=== PATIENT | female | born 2000 | race African-American/Black ===

== ENCOUNTER 2021-09-20 21:26 | Inpatient (IN) | payer OTHER ==
[~2021-09-20] VITALS: Ht 162.6 cm; Wt 56.8 kg
[2021-09-20 22:37] LABS: HEMATOCRIT 35.8 % (36.0-47.0); MEAN CORPUSCULAR HEMOGLOBIN 29.1 pg (27.0-33.0); MEAN CORPUSCULAR HGB CONC 33.5 g/dl (32.0-36.5); MEAN CORPUSCULAR VOLUME 86.9 fl (80.0-96.0); PLATELET COUNT, AUTOMATED 252 10^3/uL (150-450); RED BLOOD COUNT 4.12 10^6/uL (4.00-5.40); WHITE BLOOD COUNT 4.3 10^3/uL (4.0-10.0)
[2021-09-20 22:55] LABS: HCG, SERUM QUALITATIVE NEGATIVE (NEGATIVE)
[2021-09-20 23:01] LABS: ACETAMINOPHEN LEVEL < 2.0 UG/ML (10.0-30.0); ALT/SGPT 21 U/L (12-78); BILIRUBIN,DIRECT < 0.1 MG/DL (0.0-0.2); BILIRUBIN,TOTAL 0.2 MG/DL (0.2-1.0); BLOOD UREA NITROGEN 9 MG/DL (7-18); CALCIUM LEVEL 9.1 MG/DL (8.5-10.1); CARBON DIOXIDE LEVEL 27 MEQ/L (21-32); CHLORIDE LEVEL 108 MEQ/L (98-107); CREATININE FOR GFR 0.76 MG/DL (0.55-1.30); ETHYL ALCOHOL (ETHANOL) < 0.003 % (0.000-0.010); GLUCOSE, FASTING 79 MG/DL (70-100); POTASSIUM SERUM 3.6 MEQ/L (3.5-5.1); SALICYLATE LEVEL < 1.7 MG/DL (5.0-30.0); SODIUM LEVEL 140 MEQ/L (136-145); TOTAL PROTEIN 7.4 GM/DL (6.4-8.2)
[2021-09-20 23:23] LABS: AMPHETAMINES LEVEL URINE NEGATIVE (NEGATIVE); BARBITURATES URINE NEGATIVE (NEGATIVE); BENZODIAZEPINES URINE NEGATIVE (NEGATIVE); CANNABINOIDS URINE POSITIVE (NEGATIVE); COCAINE METABOLITE URINE NEGATIVE (NEGATIVE); METHADONE URINE NEGATIVE (NEGATIVE); OPIATES URINE NEGATIVE (NEGATIVE); PHENCYCLIDINE URINE NEGATIVE (NEGATIVE)
[2021-09-20 23:44] LABS: RSV AMPLIFICATION NEGATIVE (NEGATIVE)
[2021-09-21] MEDS ORDERED: MOM 30ML SUSPENSION UDC PO PRN (00:50)
[2021-09-21] MEDS ORDERED: ACETAMINOPHEN TAB 650MG DOSE (2X325MG) PO PRN (00:50)
[2021-09-21] MEDS ORDERED: LORazepam 0.5 MG TAB PO PRN (00:50)
[2021-09-21] MEDS ORDERED: traZODone 50 MG TAB PO PRN (00:50)
[2021-09-21] MEDS ORDERED: MAALOX 30 ML SUSP *UDC PO PRN (00:50)
[2021-09-21] MEDS ORDERED: HOME MED LIST COMPLETE! XX SCH (01:40)
[2021-09-21 01:44] VITALS: BP 138/90
[2021-09-21] MEDS ORDERED: hydrOXYzine 50 MG TAB PO PRN (11:10)
[2021-09-21] MEDS ORDERED: NICOTINE 14 MG/24 HR TRANSDERMAL TD PRN (11:15)
[2021-09-21 15:52] VITALS: BP 126/77
[2021-09-22 05:59] VITALS: BP 132/59
[2021-09-22] MEDS: SERTRALINE HCL 50 MG TAB PO SCH (09:30)
[2021-09-22] MEDS ORDERED: ALBUTEROL 90 MCG/ACT 8GM HFA INHALER INH PRN (11:15)
[2021-09-22 16:31] VITALS: BP 141/94
[2021-09-23 06:28] VITALS: BP 132/60
[2021-09-23] MEDS: SERTRALINE HCL 50 MG TAB PO SCH (08:53)
[2021-09-23] MEDS ORDERED: NICO14PA TD (09:52)
[2021-09-23] MEDS ORDERED: SERT50TA29 PO (09:52)
== END 2021-09-23 14:32 | disposition home or self-care (01) | DRG 751 ==
LOC: M ED 21:26 → M ED INP 21:27 → M PSY 09-21 01:39
PROVIDERS: ADMIT Student in an Organized Health Care Education/Training Program; ATTEND Student in an Organized Health Care Education/Training Program
DX: F32.1 Major depressive disorder, single episode, moderate (principal); R45.851 Suicidal ideations; F12.90 Cannabis use, unspecified, uncomplicated; F43.10 Post-traumatic stress disorder, unspecified; F41.9 Anxiety disorder, unspecified; Z62.810 Personal history of physical and sexual abuse in childhood; J45.909 Unspecified asthma, uncomplicated